=== PATIENT | female | born 1975 | race African-American/Black ===

== ENCOUNTER 2019-01-05 11:17 | Emergency (ER) | payer BC, OTHER ==
--- NOTE | 2019-01-05 13:32 | EDPHYS ---
Physician Documentation [facility] Name: Pushpa Lee Age: 43 yrs Sex: Female : 1975 Arrival Date: 01/05/2019 Time: 11:21 Bed 9 Private MD: ED Physician James Ferro HPI: 01/05 16:55 This 43 yrs old Black Female presents to ER via Wheelchair with complaints of Leg Pain, kdr Foot Pain, Back Pain. 16:55 The patient presents with pain, that is chronic. The complaints affect the left kdr hamstring, posterior aspect of left knee, left calf, left Achilles and left heel. Context: The problem was sustained at work, resulted from the patient falling. Onset: The symptoms/episode began/occurred gradually, 1.5 year(s) ago, Is acutely worse for the last few days. Has not been able to get relief and has recently seen a doctor and was given meds for pain and muscle relaxors including Flexeril baclofen . Modifying factors: The symptoms are alleviated by Certain positions. the symptoms are aggravated by movement, weight bearing. Associated signs and symptoms: Pertinent positives: numbness, tingling, These are chronic conditions with recent exacerbations. Severity of symptoms: At their worst the symptoms were moderate, severe, just prior to arrival. The patient has experienced similar episodes in the past, chronically. The patient has been recently seen by a physician: the patient's primary care provider. Historical: - Allergies: 11:32 No Known Allergies; sv - PMHx: 11:32 None; sv - PSHx: 11:32 ; sv - Immunization history:: Adult Immunizations up to date. - Social history:: Smoking status: Patient uses tobacco products, smokes one pack cigarettes per day. - Ebola Screening: : No symptoms or risks identified at this time. ROS: 16:55 Constitutional: Negative for fever, chills, and weight loss, Eyes: Negative for injury, kdr pain, redness, and discharge, ENT: Negative for injury, pain, and discharge, Neck: Negative for injury, pain, and swelling, Cardiovascular: Negative for chest pain, palpitations, and edema, Respiratory: Negative for shortness of breath, cough, wheezing, and pleuritic chest pain, Abdomen/GI: Negative for abdominal pain, nausea, vomiting, diarrhea, and constipation, : Negative for injury, bleeding, discharge, and swelling, MS/Extremity: Negative for injury and deformity, Skin: Negative for injury, rash, and discoloration, Psych: Negative for depression, anxiety, suicide ideation, homicidal ideation, and hallucinations, Allergy/Immunology: Negative for hives, rash, and allergies, Endocrine: Negative for neck swelling, polydipsia, polyuria, polyphagia, and marked weight changes, Hematologic/Lymphatic: Negative for swollen nodes, abnormal bleeding, and unusual bruising. 16:55 Back: Positive for pain at rest, pain with movement, radiated pain. Exam: 16:55 Constitutional: This is a well developed, well nourished patient who is awake, alert, kdr and in no acute distress. Head/Face: Normocephalic, atraumatic. Eyes: Pupils equal round and reactive to light, extra-ocular motions intact. Lids and lashes normal. Conjunctiva and sclera are non-icteric and not injected. Cornea within normal limits. Periorbital areas with no swelling, redness, or edema. Neck: Trachea midline, no thyromegaly or masses palpated, and no cervical lymphadenopathy. Supple, full range of motion without nuchal rigidity, or vertebral point tenderness. No Meningismus. Chest/axilla: Normal chest wall appearance and motion. Nontender with no deformity. No lesions are appreciated. Cardiovascular: Regular rate and rhythm with a normal S1 and S2. No gallops, murmurs, or rubs. Normal PMI, no JVD. No pulse deficits. Respiratory: Lungs have equal breath sounds bilaterally, clear to auscultation and percussion. No rales, rhonchi or wheezes noted. No increased work of breathing, no retractions or nasal flaring. Abdomen/GI: Soft, non-tender, with normal bowel sounds. No distension or tympany. No guarding or rebound. No evidence of tenderness throughout. Back: No spinal tenderness. No costovertebral tenderness. Full range of motion. Skin: Warm, dry with normal turgor. Normal color with no rashes, no lesions, and no evidence of cellulitis. MS/ Extremity: Pulses equal, no cyanosis. Neurovascular intact. Full, normal range of motion. Neuro: Awake and alert, GCS 15, oriented to person, place, time, and situation. Cranial nerves II-XII grossly intact. Motor strength 5/5 in all extremities. Sensory grossly intact. Cerebellar exam normal. Normal gait. Psych: Awake, alert, with orientation to person, place and time. Behavior, mood, and affect are within normal limits. 16:55 Neuro: Memory: is normal, Cranial nerves: grossly normal, Motor: is normal. Vital Signs: 11:32 BP 154 / 109; Pulse 88; Resp 20; Temp 98; Pulse Ox 99% ; Weight 136.08 kg; Height 5 ft. sv 3 in. (160.02 cm); Pain 10/10; 14:04 BP 145 / 90; Pulse 88; Resp 20; Temp 98.2; Pulse Ox 100% on R/A; Pain 9/10; dm5 11:32 Body Mass Index 53.14 (136.08 kg, 160.02 cm) sv MDM: 13:31 Patient medically screened. kdr 16:55 Data reviewed: vital signs, nurses notes. Counseling: I had a detailed discussion with kdr the patient and/or guardian regarding: the historical points, exam findings, and any diagnostic results supporting the discharge/admit diagnosis, the need for outpatient follow up. Administered Medications: 13:34 Drug: SOLU-Medrol 125 mg Route: IM; Site: left gluteus; dm5 14:09 Follow up: Response: No adverse reaction; No change in condition dm5 Disposition: 01/05/19 13:31 Discharged to Home. Impression: Low back pain, Sciatica, left side. - Condition is Stable. - Discharge Instructions: Constipation, Adult, [id number], Back Pain, Adult, [id number]-[id number], Sciatica, [id number]. - Prescriptions for Miralax 17 gram/dose Oral - take 1 packet by ORAL route once daily As needed dilute powder in 8 ounces of water or juice; 10 packet. - Work release form, Medication Reconciliation Form, Thank You Letter, Prescription Opioid Use form. - Follow up: Madhav Minor MD; When: 1 - 2 days; Reason: If symptoms return, Further diagnostic work-up, Recheck today's complaints, Continuance of care, Re-evaluation by your physician. - Problem is an acute exacerbation. - Symptoms have improved. - Notes: Please follow-up with Dr. Madhav Minor as soon as possible Signatures: Lillian Edwards, RN RN dm5 Barbra Gaspar RN RN sv James Ferro MD MD kdr Corrections: (The following items were deleted from the chart) 14:09 13:31 01/05/2019 13:31 Discharged to Home. Impression: Low back pain; Sciatica, left dm5 side. Condition is Stable. Forms are Medication Reconciliation Form, Thank You Letter, Antibiotic Education, Prescription Opioid Use. Follow up: Madhav Minor; When: 1 - 2 days; Reason: If symptoms return, Further diagnostic work-up, Recheck today's complaints, Continuance of care, Re-evaluation by your physician. Problem is an acute exacerbation. Symptoms have improved. kdr
--- NOTE | 2019-01-05 13:32 | ER ---
Nurse's Notes [facility] Name: Pushpa Lee Age: 43 yrs Sex: Female : 1975 Arrival Date: 01/05/2019 Time: 11:21 Bed 9 Private MD: Diagnosis: Low back pain;Sciatica, left side Presentation: 01/05 11:30 Presenting complaint: Patient states: low back pain that radiates to LLE. 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 Transition of care: patient was not received from another setting of care. Onset of symptoms was February 2018. Care prior to arrival: None. 11:30 Method Of Arrival: Wheelchair sv 11:30 Acuity: ADWOA 4 sv 14:06 Risk Assessment: Do you want to hurt yourself or someone else? Patient reports no dm5 desire to harm self or others. Initial Sepsis Screen: Does the patient meet any 2 criteria? No. Patient's initial sepsis screen is negative. Does the patient have a suspected source of infection? No. Patient's initial sepsis screen is negative. Triage Assessment: 11:33 General: Appears in no apparent distress. uncomfortable, obese, Behavior is calm, sv cooperative, appropriate for age. Pain: Complains of pain in low back area Pain radiates to left leg Pain currently is 10 out of 10 on a pain scale. Neuro: Level of Consciousness is awake, alert, obeys commands, Oriented to person, place, time, situation. Respiratory: Respiratory effort is even, unlabored, Respiratory pattern is regular, symmetrical. 14:06 Musculoskeletal: Reports pain in left leg and low back area. dm5 Historical: - Allergies: 11:32 No Known Allergies; sv - PMHx: 11:32 None; sv - PSHx: 11:32 ; sv - Immunization history:: Adult Immunizations up to date. - Social history:: Smoking status: Patient uses tobacco products, smokes one pack cigarettes per day. - Ebola Screening: : No symptoms or risks identified at this time. Screenin:04 Abuse screen: Denies threats or abuse. Denies injuries from another. Nutritional dm5 screening: No deficits noted. Tuberculosis screening: No symptoms or risk factors identified. Fall Risk None identified. Assessment: 12:55 Neuro: Level of Consciousness is awake, alert, obeys commands, Oriented to person, dm5 place, time, situation, Intact Reports back injury that occurred in February 2018. Pt has seen occupation doctor, pt has had steroid shots in the past that seem to help. Pt requests not to have any narcotics. Pt states that she thought she was getting better but then Tuesday she things she may have just over exerted and re-injured her back.. Vital Signs: 11:32 BP 154 / 109; Pulse 88; Resp 20; Temp 98; Pulse Ox 99% ; Weight 136.08 kg; Height 5 ft. sv 3 in. (160.02 cm); Pain 10/10; 14:04 BP 145 / 90; Pulse 88; Resp 20; Temp 98.2; Pulse Ox 100% on R/A; Pain 9/10; dm5 11:32 Body Mass Index 53.14 (136.08 kg, 160.02 cm) sv ED Course: 11:21 Patient arrived in ED. as 11:31 Triage completed. sv 11:32 Arm band placed on Patient placed in waiting room, Patient notified of wait time. sv 12:49 James Ferro MD is Attending Physician. kdr 12:55 Lillian Edwards RN is Primary Nurse. dm5 13:27 Madhav Minor MD is Referral Physician. kdr 14:04 Allergy band placed. Call light in reach. Adult w/ patient. dm5 14:04 No provider procedures requiring assistance completed. Patient did not have IV access dm5 during this emergency room visit. Administered Medications: 13:34 Drug: SOLU-Medrol 125 mg Route: IM; Site: left gluteus; dm5 14:09 Follow up: Response: No adverse reaction; No change in condition dm5 Outcome: 13:31 Discharge ordered by . kdr 14:04 Discharged to home ambulatory. dm5 14:04 Condition: good 14:04 Discharge instructions given to patient, family, Instructed on discharge instructions, follow up and referral plans. medication usage, Demonstrated understanding of instructions, follow-up care, medications. 14:09 Patient left the ED. dm5 Signatures: Lillian Edwards RN RN dm5 Barbra Gaspar RN RN sv James Ferro MD MD kdr Malik, Laura as
[2019-01-05] MEDS ORDERED: METHYLPREDNISOLONE 125 MG INJ ONE (13:38)
== END 2019-01-05 14:09 | disposition home or self-care (01) ==
LOC: ER 11:17
DX: M54.32 Sciatica, left side (principal); F17.210 Nicotine dependence, cigarettes, uncomplicated; Z72.0 Tobacco use
CPT/HCPCS: 96372; 99283; J2930